=== PATIENT | male | born 1970 | race Two or more races ===

== ENCOUNTER 2025-03-13 10:39 | Emergency (ER) | payer OTHER ==
[~2025-03-13] VITALS: Ht 172.7 cm; Wt 59.0 kg
[2025-03-13] MEDS ORDERED: EFAVIRENZ (11:21)
[2025-03-13] MEDS ORDERED: LAMIVUDINE-ZID1 EACH (11:22)
[2025-03-13] MEDS ORDERED: DILANTIN30 MG (11:22)
[2025-03-13] MEDS ORDERED: FOLIC ACID20 MG (11:23)
[2025-03-13] MEDS ORDERED: COZAAR25 MG (11:23)
[2025-03-13] MEDS ORDERED: DILANTIN100 MG (11:23)
[2025-03-13 12:52] LABS: BASO % 0.4 % (0.1-1.2); EOS # 0.19 (0.04-0.54); EOS % 3.7 % (0.7-7.0); LYMPH # 1.62 (1.18-3.74); LYMPH % 31.5 % (19.3-53.1); MEAN PLATELET VOLUME 9.30 fl (9.4-12.4); MONO # 0.62 (0.24-0.82); MONO % 12.0 % (4.7-12.5); NEUT # 2.69 (1.56-6.13); NEUT % 52.2 % (34.0-71.1); RED CELL DISTRIBUTION WIDTH 11.7 % (11.6-14.4)
[2025-03-13 13:04] LABS: ERYTHROCYTE SEDIMENTATION RATE 6 mm/hr (0-20)
[2025-03-13 13:17] LABS: INR 1.04
[2025-03-13 13:43] LABS: ALT/SGPT 58 U/L (12-78); AST/SGOT 51 U/L (15-37); BILIRUBIN TOTAL 0.41 mg/dL (0.3-1.2); BUN CREA RATIO 16 (7.0-25.0); CREATININE SERUM 0.70 mg/dL (0.70-1.30); GFR 116.66; GLOBULINA 4.2 G/DL (2.4-3.5); GLUCOSE FASTING 89 mg/dL (65-100); OSMOLALITY SERUM 282 MOSM/KG (275-295)
[2025-03-13 14:29] LABS: COVID-19 AG NEGATIVE (NEGATIVE)
[2025-03-13] MEDS ORDERED: MUCINEX D ER 11 EACH PO (18:14)
[2025-03-13] MEDS ORDERED: EAR WAX DROPS15 M1 OPHT (18:36)
== END 2025-03-13 18:37 | disposition home or self-care (01) ==
LOC: ER 10:40
PROVIDERS: Physician Assistant Medical
DX: B34.8 Other viral infections of unspecified site (principal); J98.8 Other specified respiratory disorders; Z20.822 Contact with and (suspected) exposure to COVID-19; B20 Human immunodeficiency virus [HIV] disease; Z86.73 Personal history of transient ischemic attack (TIA), and cerebral infarction without residual deficits